=== PATIENT | female | born 1960 | race Hispanic/Latino ===

== ENCOUNTER 2017-01-19 16:30 | Emergency (ER) | payer OTHER, BC ==
[2017-01-19 16:42] VITALS: BMI 29.0
[2017-01-19 16:45] VITALS: BP 147/76; PULSE 72; RESP 16; TEMP 98.7; O2SAT 98
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
== END 2017-01-19 17:15 | disposition home or self-care (01) ==
LOC: ED 16:30
DX: S50.811A Abrasion of right forearm, initial encounter (principal); W50.4XXA Accidental scratch by another person, initial encounter; Y92.89 Other specified places as the place of occurrence of the external cause; Y99.0 Civilian activity done for income or pay

== ENCOUNTER 2018-06-07 18:38 | Emergency (ER) | payer OTHER, BC ==
[2018-06-07 19:24] VITALS: RESP 18; TEMP 98.5
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
[2018-06-07 23:14] VITALS: BP 135/78; PULSE 74; O2SAT 99
== END 2018-06-07 20:20 | disposition home or self-care (01) ==
LOC: ED 18:38
DX: S00.83XA Contusion of other part of head, initial encounter (principal); Y08.89XA Assault by other specified means, initial encounter; Y93.F9 Activity, other caregiving; Y92.231 Patient bathroom in hospital as the place of occurrence of the external cause; Y99.0 Civilian activity done for income or pay